=== PATIENT | female | born 1985 | race Two or more races ===

== ENCOUNTER 2025-04-06 18:33 | Emergency (ER) | payer SELFPAY | END 2025-04-06 20:30 | disposition left against medical advice (07) | LOC: ER 18:33 | DX: L02.91 Cutaneous abscess, unspecified (principal); Z53.21 Procedure and treatment not carried out due to patient leaving prior to being seen by health care provider ==

== ENCOUNTER 2025-07-24 21:48 | Emergency (ER) | payer MEDICAID, OTHER ==
[~2025-07-24] VITALS: Ht 157.5 cm; Wt 71.2 kg
[2025-07-24 23:02] VITALS: BP 133/85; PULSE 97; RESP 18; TEMP 97.5; O2SAT 97
[2025-07-24] MEDS ORDERED: ACET500T58 PO (23:24)
[2025-07-24] MEDS ORDERED: BACDST PO (23:24)
--- NOTE | 2025-07-24 23:24 | ED.PDOC ---
History of Present Illness(SKN HPI Comments 40-year-old female presents to ER with complaints of wound check. Patient reports that she started experiencing pain/swelling/redness from "possible insect bite" to left hand x1 day. Notes she believes her symptoms are related to an abscess and is requesting for it to be drained in ER today. She reports 8/10 "pressure pain" to left hand and denies use of medications for current symptoms. Notes she is able to fully move all fingers of left hand. Denies fever, body aches, chills, night sweats, numbness/tingling, injury or any further symptoms/complaints Chief Complaint: Upper Extremity Time Seen by MD: 22:00 Primary Care Provider: UNKNOWN History of Present Illness: Nurses Notes, Medications, Allergies Allergies: Coded Allergies: NO KNOWN ALLERGIES (Unverified , 07/24/25) Home Meds Active Scripts Sulfamethoxazole W/Trimethopri (Bactrim Ds Tablet) 1 Tab Tb, 1 TAB PO BID for 10 Days, #20 TAB 0 Refills Prov:JEANETTE HUSAIN 07/24/25 Acetaminophen (Acetaminophen) 500 Mg Tab, 500 MG PO Q4HPRN, #30 TAB 0 Refills Prov:JEANETTE HUSAIN 07/24/25 Information Source: Patient Mode of Arrival: Ambulatory Tetanus: UTD Past Medical History PAST MEDICAL HISTORY: Denies Surgical History: Denies all surgeries Family History Family History: Unknown Social History Smoker: Non-Smoker Alcohol: Denies ETOH Use Drugs: Denies Drug Use Lives In: Home Constitutional: denies: chills, diaphoresis, fatigue, fever, malaise, sweats, weakness, others EENTM: denies: blurred vision, double vision, ear bleeding, ear discharge, ear drainage, ear pain, ear ringing, eye pain, eye redness, hearing loss, mouth pain, mouth swelling, nasal discharge, nose bleeding, nose congestion, nose pain, photophobia, tearing, throat pain, throat swelling, voice changes, others Respiratory: denies: cough, hemoptysis, orthopnea, SOB at rest, shortness of breath, SOB with excertion, stridor, wheezing, others Cardiovascular: denies: chest pain, dizzy spells, diaphoresis, Dyspnea on exertion, edema, irregular heart beat, left arm pain, lightheadedness, palpitations, PND, syncope, others Gastrointestinal: denies: abdomen distended, abdominal pain, blood streaked bowels, constipated, diarrhea, dysphagia, difficulty swallowing, hematemesis, melena, nausea, poor appetite, poor fluid intake, rectal bleeding, rectal pain, vomiting, others Genitourinary: denies: abnormal vagina bleeding, burning, dyspareunia, dysuria, flank pain, frequency, hematuria, incontinence, pain, , vagina discharge, urgency, others Neurological: denies: dizziness, fainting, headache, left sided numbness, left sided weakness, numbness, paresthesia, pre-existing deficit, right sided numbness, right sided weakness, seizure, speech problems, tingling, tremors, weakness, others Musculoskeletal: denies: back pain, gout, joint pain, joint swelling, muscle pain, muscle stiffness, neck pain, others Integumetry: reports: others (As stated in HPI) Allergic/Immunocompromised: denies: Difficulty Healing, Frequent Infections, Hives, Itching, others Hematologic/Lymphatic: denies: anemia, blood clots, easy bleeding, easy bruising, swollen glands, others Endocrine: denies: excessive hunger, excessive sweating, excessive thirst, excessive urination, flushing, intolerance to cold, intolerance to heat, unexplained weight gain, unexplained weight loss, others Psychiatric: denies: anxiety, bipolar disorder, depression, hopeless, panic disorder, schizophrenia, sleepless, suicidal, others Physical Exam General Appearance: No Apparent Distress HEENT: PERRL/EOMI Neck: Full Range of Motion, Non-Tender, Normal Respiratory: Chest Non-Tender, Lungs Clear, No Accessory Muscle Use, No Respiratory Distress, Normal Breath Sounds Cardiovascular: No Murmur, No Gallop, Regular Rate/Rhythm Breast Exam: Deferred Gastrointestinal: NOT DONE Genitalia: Deferred Pelvic: Deferred Rectal: Deferred Extremities: Normal capillary refill, Normal range of motion Neurologic: Alert, No Motor Deficits, Normal Affect, Normal Mood, No Sensory Deficits Cerebellar Function: Normal Reflexes: Normal Skin: Dry, Warm Peripheral Pulses: 2+ Radial (R), 2+ Radial (L), 2+ Brachial (R), 2+ Brachial (L) Lymphatic: No Adenopathy Was a procedure done? Was a procedure done?: Yes Sedation Sedation?: No Incision and Drainage Incision and Drainage: Abscess Location Left hand Anesthetic: Lidocaine (1%) Preparation: Betadine Incision and Wound: Pus, Blood, Amount (Moderate amount of purulent drainage released. Loculations broken up with hemostat. Patient neurovascularly intact and reported improvement in symptoms), Irrigated (heavily irrigated), Packed (pateint refused packing in ER) Informed consent obtained: Yes Risks/benefits/alt described: Yes (Including hand surgery consultation. Patient elected to proceed with drainage but declined packing. ) Images 1 - Small superficial abscess noted. Patient able to fully move all fingers of left hand. No signs of deep space or flexor tendon sheath involvement noted. No red streaking/drainage/foreign body appreciated. Pulses intact Differential Diagnosis (INTG) Differential Diagnosis: Abrasion Differential Diagnosis: Neurovascular Injury Differential Diagnosis: Osteomyelitis, Puncture Wound, Retained Foreign Body X-Ray, Labs, Meds, VS Vital Signs Date Time Temp Pulse Resp B/P (MAP) Pulse Ox O2 Delivery O2 Flow Rate FiO2 07/24/25 23:02 97.5 97 18 133/85 (101) 97 97.5 07/24/25 23:02 Room Air* 0 21 07/24/25 21:48 97.5 97 18 133/85 97 97.5 Current Medications Medications (Trade) Dose Ordered Sig/Prakash Route Start Time Stop Time Status Last Admin Ceftriaxone Sodium (Rocephin) 1,000 mg ONCE ONCE IM 07/24/25 23:30 07/24/25 23:31 DC 07/24/25 23:35 Lidocaine HCl (Xylocaine 1%) ONCE ONCE ID 07/24/25 23:45 07/24/25 23:46 DC 07/24/25 23:46 Rocephin 1 g IM ordered Patient neurovascularly intact and reported improvement in symptoms prior to discharge Strict return precautions for worsening pain, spreading erythema, fever, decreased range of motion and neurovascular changes discussed and advised Wound care/cleaning and warm soaks discussed and advised Advised to follow up in 24-48 hours for wound check Patient provided information with regards to local PCP/orthopedic hand surgeons and advised to f/u in 1-2 days Patient verbalized understanding and agreeable with current plan of care Advised to return to ER immediately if symptoms worsen Time of 1ST Reevaluation: 22:50 Reevaluation 1ST: N/A Time of 2ND Reevaluation: 23:04 Reevaluation 2ND: Improved Patient Education/Counseling: Diagnosis, Treatment, Prognosis, Need For Follow Up Family Education/Counseling: No Family Present SEPSIS Sepsis Screen Date sepsis recognized/suspect: Jul 24, 2025 Time Sepsis recognized/suspect: 2147 Recent Procedure: No On Antibiotic Therapy: No Respiratory Rate >20: No Heart Rate >90: Yes Temp<36 C (96.8 F) or >38.3 C: No SBP <90 or MAP <65 mmHG: No New Acute Mental Status Change: No Is the patient on CPAP, BIPAP,: No Vital Signs Date Time Temp Pulse Resp B/P (MAP) Pulse Ox O2 Delivery O2 Flow Rate FiO2 07/24/25 23:02 97.5 97 18 133/85 (101) 97 97.5 07/24/25 23:02 Room Air* 0 21 07/24/25 21:48 97.5 97 18 133/85 97 97.5 Medications Medications Dose Ordered Sig/Prakash Route Start Time Stop Time Status Last Admin Dose Admin Ceftriaxone Sodium 1,000 mg ONCE ONCE IM 07/24/25 23:30 07/24/25 23:31 DC 07/24/25 23:35 Lidocaine HCl ONCE ONCE ID 07/24/25 23:45 07/24/25 23:46 DC 07/24/25 23:46 Departure 1 Departure Time of Disposition: 23:20 Impression: Primary Impression: Abscess of hand, left Disposition: 01 HOME / SELF CARE / HOMELESS Condition: Stable e-Prescriptions Sulfamethoxazole W/Trimethopri (Bactrim Ds Tablet) 1 Tab Tb 1 TAB PO BID for 10 Days, #20 TAB 0 Refills Prov: JEANETTE HUSAIN 07/24/25 Acetaminophen (Acetaminophen) 500 Mg Tab 500 MG PO Q4HPRN, #30 TAB 0 Refills Prov: JEANETTE HUSAIN 07/24/25 Discharged With: Significant Other Critical Care Note Critical Care Time?: No Stability Stability form required: No Heart Score Heart Score: Heart Score Response (Comments) Value History N/A 0 EKG N/A 0 Age N/A 0 Risk Factors N/A 0 Troponin N/A 0 Total 0 JEANETTE HUSAIN Jul 24, 2025 23:24
[2025-07-24] MEDS: cefTRIAXone SOD 1,000 MG VL IM ONE (23:35)
[2025-07-24] MEDS: LIDOCAINE 1% HCL (LOCAL ANESTH.) INJ 20ML MDV ID ONE (23:46)
== END 2025-07-25 00:05 | disposition home or self-care (01) ==
LOC: ER 21:48
DX: L02.512 Cutaneous abscess of left hand (principal)
CPT/HCPCS: 10060; 96372; 99283; J0696; J2003